=== PATIENT | female | born 1975 | race American Indian/Alaskan Native ===

== ENCOUNTER 2022-06-20 11:43 | Outpatient (CLI) | payer OTHER ==
--- NOTE | 2022-06-20 16:12 | XRay Report ---
CERVICAL SPINE 3 VIEWS INDICATION / CLINICAL INFORMATION: CERVICALGIA. COMPARISON: None available. FINDINGS: BONES / JOINT(S): There is mild nonspecific reversal of the normal cervical lordosis. There is modera te degenerative disc disease at C4-5 and C5-6. There are minimal degenerative changes in the remainde r of the spine. There is no evidence of acute fracture, subluxation or destructive lesion. SOFT TISSUES: The prevertebral soft tissues are normal. ADDITIONAL FINDINGS: The lung apices are clear. IMPRESSION: 1. Mild nonspecific reversal of the normal cervical lordosis. 2. Spondylosis, predominantly at C4-5 and C5-6. Signer Name: Christian Rider MD Signed: 06/20/2022 4:07 PM Workstation Name: [id number]
--- NOTE | 2022-06-20 17:01 | Magnetic Resonance Report ---
MRI BRAIN WITHOUT CONTRAST INDICATION / CLINICAL INFORMATION: G44.89, R20.2.\, HEADACHES, DIZZZINESS. TECHNIQUE: Multiplanar, multisequence MR images of the brain were obtained. COMPARISON: None available. FINDINGS: BRAIN / INTRACRANIAL CONTENTS: Ventricles and cortical sulci are normal in size and configuration. Th ere is no mass effect. No evidence of intracranial hemorrhage or extra-axial fluid collection is seen . No significant areas of abnormal brain parenchymal signal intensity are identified. There is no ind ication of remote cortical infarction. Diffusion weighted scans are negative. There is no indication of acute ischemic injury. The brainstem and cerebellum have an unremarkable appearance. MIDLINE STRUCTURES:No abnormalities are seen to involve the pituitary gland. Pineal region has an unr emarkable appearance. CRANIOCERVICAL JUNCTION: No abnormalities are identified at the craniocervical junction. VASCULAR FLOW-VOIDS: Normal flow-voids are present within the major intracranial vessels. ORBITS: The orbits have an unremarkable appearance. SINUSES / MASTOIDS: There is no indication of inflammatory disease in the paranasal sinuses or mastoi d air cells. ADDITIONAL FINDINGS: There is an 8mm diameter parotid nodule or cyst on the anterior margin of the colindres perficial lobe of the left parotid gland. Correlation with ENT evaluation is suggested. IMPRESSION: 1. No intracranial abnormalities are identified. 2. Incidental note is made of a small left-sided parotid lesion. ENT evaluation is suggested. Signer Name: Corey Clark MD Signed: 06/20/2022 4:56 PM Workstation Name: [id number]
== END 2022-06-20 11:44 | disposition home or self-care (01) ==
LOC: MRI 11:43
DX: M47.812 Spondylosis without myelopathy or radiculopathy, cervical region (principal); G44.89 Other headache syndrome; R20.2 Paresthesia of skin; K11.8 Other diseases of salivary glands
CPT/HCPCS: 70551; 72040

== ENCOUNTER 2022-07-13 09:35 | Outpatient (CLI) | payer OTHER ==
--- NOTE | 2022-07-13 16:52 | Magnetic Resonance Report ---
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 TECHNIQUE: Multiplanar, multisequence MR images were obtained. COMPARISON: Unenhanced MRI brain-06/20/2022 FINDINGS: I see no signs of abnormal enhancement following contrast demonstration. Small parotid lesion/cyst persists in the superficial portion of the left parotid gland. If this lesi on is cystic, small Warthin's tumor might be considered. Follow-up as clinically warranted. IMPRESSION: 1. No signs of abnormal enhancement seen following contrast. Signer Name: Pete Cunha MD, III Signed: 07/13/2022 4:47 PM Workstation Name: [id number]
== END 2022-07-13 09:36 | disposition home or self-care (01) ==
LOC: MRI 09:35
DX: M54.2 Cervicalgia (principal); R20.2 Paresthesia of skin; G44.89 Other headache syndrome
CPT/HCPCS: 70552; A9575